=== PATIENT | male | born 1975 | race Caucasian/White ===

== ENCOUNTER 2017-04-08 17:47 | Emergency (ER) | payer OTHER ==
[2017-04-08 18:00] VITALS: RESP 16; TEMP 97.7
[2017-04-08] MEDS ORDERED: IBUPROFEN 600 MG TAB PO ONE ×2 (18:25)
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
[2017-04-08 19:27] VITALS: BP 109/84; PULSE 81; O2SAT 96
== END 2017-04-08 19:53 | disposition home or self-care (01) ==
PROC: 0RSWXZZ Reposition Right Finger Phalangeal Joint, External Approach (ICD-10-PCS; principal; 2017-04-08)
DX: S63.284A Dislocation of proximal interphalangeal joint of right ring finger, initial encounter (principal); V18.4XXA Pedal cycle driver injured in noncollision transport accident in traffic accident, initial encounter; Y92.410 Unspecified street and highway as the place of occurrence of the external cause; Y99.8 Other external cause status; Y93.55 Activity, bike riding; F17.200 Nicotine dependence, unspecified, uncomplicated
CPT/HCPCS: L3925